=== PATIENT | female | born 1970 | race Caucasian/White ===

== ENCOUNTER 2018-09-17 19:38 | Emergency (ER) | payer OTHER ==
[~2018-09-17] VITALS: Ht 152.4 cm; Wt 68.0 kg
[2018-09-17] MEDS ORDERED: NKM (19:44)
--- NOTE | 2018-09-17 19:48 | Emergency Room Report ---
History of Present Illness General Chief Complaint: Chest Pain Source: Patient, EMS Present Illness HPI Patient is a 48-year-old female brought in by EMS after increased chest discomfort. Patient reports of increased chest tightness. She had prior history of recent upper respiratory illness. Patient had been having nonproductive cough. She reports having worsening chest tightness and was sent in from urgent care. Patient received aspirin as well as nitroglycerin in the field. She was noted to have improvement in her symptoms.Patient reports having prior history of hypertension. She denies any prior cardiac history. She denies any recent travel or increased leg pain or swelling. Allergies: Coded Allergies: No Known Allergies (Unverified , 09/17/18) Patient History Past Medical History: see triage record Last Menstrual Period: 3 months ago Now: No Reviewed Nursing Documentation: PMH: Agreed; PSxH: Agreed Nursing Documentation-PMH Past Medical History: No Stated History Review of Systems All Other Systems: negative except mentioned in HPI Physical Exam Vital Signs Date Time Temp Pulse Resp B/P (MAP) Pulse Ox O2 Delivery O2 Flow Rate FiO2 09/17/18 19:39 98.1 90 18 124/85 98 Room Air Sp02 EP Interpretation: reviewed, normal General Appearance: normal inspection, well appearing, no apparent distress, alert, GCS 15 Head: atraumatic ENT: normal ENT inspection, hearing grossly normal, normal voice Neck: normal inspection, full range of motion, supple, no bony tend Respiratory: normal inspection, no respiratory distress, no retraction, wheezing Cardiovascular #1: regular rate, rhythm, no edema Gastrointestinal: normal inspection, normal bowel sounds, non tender, soft, no guarding, no hernia Genitourinary: no CVA tenderness Musculoskeletal: normal inspection, back normal, normal range of motion Neurologic: normal inspection, alert, oriented x3, responsive, 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 Differential diagnosis included but was not limited to acute coronary syndrome, pulmonary embolism, pneumonia, aortic dissection, shingles, pneumothorax, aortic dissection, esophageal rupture, pericarditis. Because of complexity of patient's case laboratory testing and imaging studies were ordered. Laboratory studies were unremarkable. Patient noted to have a minimally elevated white blood count. Patient was noted to have some prior respiratory illness. She was given breathing treatments with improvement in her symptoms. Patient does not have any risk factor for PE. Patient also has some sick contacts at home with flulike illness. Patient does not appear to require antibiotics at this time. Patient was offered admission for further evaluation of chest pain. Patient declined admission. patient is advised to recheck with her primary care physician. Patient given copy of her laboratory results as well as EKGs. She was advised to have outpatient cardiac workup. Patient appears stable for discharge. Patient given prescription for albuterol as well as oral steroids. She appears to have some evidence of bronchitis which appears viral Labs Test 09/17/18 19:50 09/17/18 21:15 White Blood Count 13.1 K/UL (4.8-10.8) Red Blood Count 4.91 M/UL (4.20-5.40) Hemoglobin 13.6 G/DL (12.0-16.0) Hematocrit 42.2 % (37.0-47.0) Mean Corpuscular Volume 86 FL (80-99) Mean Corpuscular Hemoglobin 27.7 PG (27.0-31.0) Mean Corpuscular Hemoglobin Concent 32.2 G/DL (32.0-36.0) Red Cell Distribution Width 13.3 % (11.6-14.8) Platelet Count 313 K/UL (150-450) Mean Platelet Volume 7.1 FL (6.5-10.1) Neutrophils (%) (Auto) 55.0 % (45.0-75.0) Lymphocytes (%) (Auto) 32.1 % (20.0-45.0) Monocytes (%) (Auto) 8.4 % (1.0-10.0) Eosinophils (%) (Auto) 3.5 % (0.0-3.0) Basophils (%) (Auto) 1.1 % (0.0-2.0) Sodium Level 139 MMOL/L (136-145) Potassium Level 4.1 MMOL/L (3.5-5.1) Chloride Level 106 MMOL/L (98-107) Carbon Dioxide Level 25 MMOL/L (21-32) Anion Gap 8 mmol/L (5-15) Blood Urea Nitrogen 15 mg/dL (7-18) Creatinine 0.7 MG/DL (0.55-1.30) Estimat Glomerular Filtration Rate > 60 mL/min (>60) Glucose Level 93 MG/DL (74-106) Calcium Level 9.4 MG/DL (8.5-10.1) Total Bilirubin 0.3 MG/DL (0.2-1.0) Aspartate Amino Transf (AST/SGOT) 13 U/L (15-37) Alanine Aminotransferase (ALT/SGPT) 18 U/L (12-78) Alkaline Phosphatase 60 U/L (46-116) Total Creatine Kinase 81 U/L (26-308) Creatine Kinase MB < 0.5 NG/ML (0.0-3.6) Creatine Kinase MB Relative Index 0.6 Total Protein 7.0 G/DL (6.4-8.2) Albumin 3.3 G/DL (3.4-5.0) Globulin 3.7 g/dL Albumin/Globulin Ratio 0.9 (1.0-2.7) Lipase 218 U/L (73-393) Troponin I 0.009 ng/mL (0.000-0.056) EKG Diagnostic Results Rate: normal Rhythm: NSR ST Segments: no acute changes Rhythm Strip Diag. Results EP Interpretation: yes Rhythm: NSR, no PVC's, no ectopy Last Vital Signs Date Time Temp Pulse Resp B/P (MAP) Pulse Ox O2 Delivery O2 Flow Rate FiO2 09/17/18 19:39 98.1 90 18 124/85 98 Room Air Status: improved Disposition: HOME, SELF-CARE Condition: Stable Scripts Prednisone* (PREDNISONE*) 20 Mg Tablet 40 MG ORAL DAILY, #10 TAB Prov: Joseph Choi MD 09/17/18 Albuterol Sulfate* (ALBUTEROL SULFATE MDI*) 8.5 Gm Hfa.aer.ad 2 PUFF INH Q6H, #1 EA 0 Refills Prov: Joseph Choi MD 09/17/18 Joseph Choi MD Sep 17, 2018 19:48
[2018-09-17 19:54] LABS: BASOPHILS % (AUTO) 1.1 % (0.0-2.0); EOSINOPHILS % (AUTO) 3.5 % (0.0-3.0); HEMATOCRIT 42.2 % (37.0-47.0); HEMOGLOBIN 13.6 G/DL (12.0-16.0); LYMPHOCYTES % (AUTO) 32.1 % (20.0-45.0); MEAN CORPUSCULAR VOLUME 86 FL (80-99); MONOCYTES % (AUTO) 8.4 % (1.0-10.0); PLATELET COUNT 313 K/UL (150-450); RED BLOOD COUNT 4.91 M/UL (4.20-5.40); RED CELL DISTRIBUTION WIDTH 13.3 % (11.6-14.8); WHITE BLOOD COUNT 13.1 K/UL (4.8-10.8)
[2018-09-17 20:00] VITALS: BP 130/81
--- NOTE | 2018-09-17 20:04 | NUR ---
ED Nurse Note: Received report. Pt BIBA from home c/o chest pain 5/10 substernal, radiating to her left arm. Ambulance gave 2 sprays of Nitro and 325mg of ASA with a decrease in her c/p to 1/10. Pt applied to surveillance system monitor, VS taken and blood drawn.
[2018-09-17 20:15] LABS: ANION GAP 8 mmol/L (5-15); BLOOD UREA NITROGEN 15 mg/dL (7-18); CALCIUM 9.4 MG/DL (8.5-10.1); CARBON DIOXIDE 25 MMOL/L (21-32); CHLORIDE 106 MMOL/L (98-107); CREATININE 0.7 MG/DL (0.55-1.30); POTASSIUM 4.1 MMOL/L (3.5-5.1); SODIUM 139 MMOL/L (136-145)
[2018-09-17 20:28] LABS: ALANINE AMINOTRANSFERASE 18 U/L (12-78); ALBUMIN 3.3 G/DL (3.4-5.0); ALBUMIN/GLOBULIN RATIO 0.9 (1.0-2.7); ALKALINE PHOSPHATASE 60 U/L (46-116); ASPARTATE AMINO TRANSFERASE 13 U/L (15-37); BILIRUBIN,TOTAL 0.3 MG/DL (0.2-1.0); CKMB < 0.5 NG/ML (0.0-3.6); CREATINE KINASE 81 U/L (26-308)
[2018-09-17] MEDS ORDERED: Albuterol/Ipratropium 3ml neb HHN ONE (20:45)
--- NOTE | 2018-09-17 21:23 | NUR ---
ED Nurse Note: Repeat troponin sent. First result negative at 0.008.
[2018-09-17] MEDS ORDERED: ALBUTEROL SULF8.5 GM INH (22:01)
[2018-09-17] MEDS ORDERED: PREDNISONE20 MG ORAL (22:01)
[2018-09-17 22:17] VITALS: BP 114/79
--- NOTE | 2018-09-18 13:32 | Diagnostic Imaging Report ---
Indication: Dyspnea Comparison: None A single view chest radiograph was obtained. Findings: Cardiomediastinal appearance is within normal limits for age. The lungs are clear. Pulmonary vascularity is appropriate. The diaphragmatic contour is smooth and costophrenic angles are sharp. No pleural effusions are identified. The bones are unremarkable. Impression: No acute findings
--- NOTE | 2018-09-18 17:24 | Cardiology Report ---
APPROVED REPORT EKG Measurement Heart [id number] Normal sinus rhythm Normal ECG
== END 2018-09-17 23:00 | disposition home or self-care (01) ==
LOC: EDBD 19:38 → EMR 22:28
DX: R07.9 Chest pain, unspecified (principal); J18.9 Pneumonia, unspecified organism
CPT/HCPCS: 36415; 71045; 80053; 82550; 82553; 83690; 84484; 85025; 86710; 93005; 94640; 94664; 99284; J7512; J7620